=== PATIENT | female | born 1935 | race American Indian/Alaskan Native ===

== ENCOUNTER 2016-06-27 07:59 | Emergency (ER) | payer MEDICARE ==
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
[2016-06-27 21:44] LABS: Eosinophils % (Auto) 6.3 % (0.0-4.3); Hematocrit 39.5 % (30.3-42.9); Hemoglobin 12.9 gm/dl (10.1-14.3); Mean Corpuscular HGB Conc 33 % (30-34); Mean Corpuscular Hemoglobin 26 pg (28-32); Mean Corpuscular Volume 80 fl (79-97); Platelet Count 365 K/mm3 (140-440); Red Blood Count 4.95 M/mm3 (3.65-5.03); Red Cell Distribution Width 15.4 % (13.2-15.2); White Blood Count 8.6 K/mm3 (4.5-11.0)
[2016-06-27 21:57] LABS: BUN/Creatinine Ratio 20.83; Calcium 9.8 mg/dL (8.4-10.2); Chloride 100.1 mmol/L (98-107); Potassium 4.7 mmol/L (3.6-5.0)
[2016-06-27] MEDS ORDERED: CATAPRES PO ONE ×2 (22:00→22:14)
[2016-06-27 22:25] VITALS: BP 172/81
--- NOTE | 2016-06-28 08:06 | Vascular Lab Report ---
Left Lower Extremity Venous Duplex Study: Reason for Exam: Pain and swelling of the left lower extremity. Comments on the Right: A limited duplex study was done of the proximal veins of the right lower extremity. All veins visualized are freely compressible without evidence of internal echogenicity. Flow is spontaneous and phasic throughout. No evidence of acute or chronic thrombus is seen in any of the vessels visualized. Comments on the Left: All veins visualized are freely compressible without evidence of internal echogenicity. Flow is spontaneous and phasic throughout. No evidence of acute or chronic thrombus is seen in any of the vessels visualized. Soft tissue changes in the lower leg could be consistent was muscle injury or fluid collection. Impression: No evidence of acute or chronic deep venous thrombosis in the left lower extremity.
--- NOTE | 2016-06-28 08:35 | XRay Report ---
Left tibia: There is generalized mild edema of the soft tissues. The visualized bones and joints are unremarkable. Impression: Nonspecific swelling.
--- NOTE | 2016-06-30 01:27 | ED Elopement Review ---
ED Pt Elopement review - Results review Lab results: Laboratory Tests 06/27/16 06/27/16 06/27/16 21:26 21:26 21:26 WBC 8.6 RBC 4.95 Hgb 12.9 Hct 39.5 MCV 80 MCH 26 L MCHC 33 RDW 15.4 H Plt Count 365 Lymph % (Auto) 27.6 [place] % (Auto) 7.2 Eos % (Auto) 6.3 H Baso % (Auto) 1.0 Lymph # 2.4 [place] # 0.6 Eos # 0.5 H Baso # 0.1 Seg Neutrophils % 57.9 Seg Neutrophils # 5.0 Sodium 140 Potassium 4.7 Chloride 100.1 Carbon Dioxide 25 Anion Gap 20 BUN 25 H Creatinine 1.2 Estimated GFR 52 BUN/Creatinine Ratio 20.83 Glucose 124 H Calcium 9.8 Total Creatine Kinase 58 NT-Pro-B Natriuret Pep 277.8 - Call Back decision Pt Call Back Decision: Pt to F/U with PMD
== END 2016-06-27 22:37 | disposition home or self-care (01) ==
LOC: ED 07:59
DX: M79.662 Pain in left lower leg (principal); I10 Essential (primary) hypertension; I63.9 Cerebral infarction, unspecified; Z79.82 Long term (current) use of aspirin
CPT/HCPCS: 36415; 80048; 82550; 83880; 85025